=== PATIENT | male | born 1990 | race Caucasian/White ===

== ENCOUNTER 2016-09-04 12:24 | Emergency (ER) | payer MEDICAID ==
[2016-09-04 12:40] VITALS: BP 148/90
[2016-09-04 13:41] LABS: CHLORIDE,CL 102 mEq/L (98-106); SODIUM,NA 140 mEq/L (136-145)
--- NOTE | 2016-09-04 13:47 | EDM.PDOCBH ---
ED HPI GENERAL MEDICAL PROBLEM - General Chief Complaint: Behavioral/Psych Stated Complaint: needs pysch placement Time Seen by Provider: 09/04/16 12:55 Source of Information: Reports: Patient, Family History Limitations: Reports: No Limitations - History of Present Illness INITIAL COMMENTS - FREE TEXT/NARRATIVE: This patient is a 25 year old male that presents to the ER. Patient is accompanied by his mother. Patient reports that he has a history of having paranoia, hallucinations, anger, and fear of harming others. Patient has history of these, but reports over the weekend they have become much worse. The mother reports the patient is now living with her and out of his home because of fear of paranoia. He does report that he has paranoia that his is cheating on him. He reports that he does not think that he would hurt his , but does think he would hurt someone else, no specific people. The patient does report that sometimes he thinks there are people in his house and outside of his house trying to get in. His mother reports that sometimes the patient will become angry, hit things, and put holes in objects, then leave for several days at a time, with cell phone off. His mother reports that she is afraid he is going to hurt someone. Mother reports that when patient was 16, he did attempt suicide. Patent currently denies suicide. Patient mother reports the patient does own a shotgun and carries it with him almost everywhere he goes. She reports that he also sleeps with it. Mother and the patient are requesting inpatient treatment for his behavior. He denies contreras, dizziness, n, v, d, f, cp, soa, abd pain, urinary/bowel changes, rashes. Denies alcohol or drug use. Onset: Gradual Duration: Day(s): (2 ), Getting Worse Severity: Moderate Improves with: Reports: None Worsens with: Reports: None Associated Symptoms: Reports: No Other Symptoms. Denies: Confusion, Chest Pain , Cough, cough w sputum, Diaphoresis, Fever/Chills, Headaches, Loss of Appetite , Malaise, Nausea/Vomiting, Rash, Seizure, Shortness of Breath, Syncope, Weakness - Related Data Allergies Allergy/AdvReac Type Severity Reaction Status Date / Time codeine Allergy Other Verified 09/04/16 12:40 meperidine [From Demerol] Allergy Other Verified 09/04/16 12:40 morphine Allergy Other Verified 09/04/16 12:40 plastic tape Allergy Other Uncoded 09/04/16 12:40 Home Meds: Home Meds ClonazePAM [KlonoPIN] 0.5 mg PO Q12H PRN 09/04/16 [History] Dextroamphetamine/Amphetamine [Adderall Xr 30 mg Capsule] 30 mg PO DAILY [History] Gabapentin [Neurontin] 300 mg PO QID 09/04/16 [History] OLANZapine [Olanzapine] 5 mg PO BEDTIME 09/04/16 [History] buPROPion HCl [Wellbutrin SR] 150 mg PO DAILY 09/04/16 [History] Past Medical History HEENT History: Reports: Allergic Rhinitis Gastrointestinal History: Reports: Bowel Obstruction Psychiatric History: Reports: ADHD, Anxiety, Depression, Other (See Below) Other Psychiatric History: paranoid - Past Surgical History GI Surgical History: Reports: Appendectomy, Cholecystectomy, Hernia, Inguinal, Hernia Repair/Other Musculoskeletal Surgical History: Reports: Other (See Below) Other Musculoskeletal Surgeries/Procedures:: foot surgery Social & Family History - Tobacco Use Smoking Status *Q: Current Every Day Smoker Years of Tobacco use: 10 Packs/Tins Daily: 0.5 - Recreational Drug Use Recreational Drug Use: No ED ROS GENERAL - Review of Systems Review Of Systems: See Below Constitutional: Reports: No Symptoms HEENT: Reports: No Symptoms Respiratory: Reports: No Symptoms Cardiovascular: Reports: No Symptoms Endocrine: Reports: No Symptoms GI/Abdominal: Reports: No Symptoms : Reports: No Symptoms Musculoskeletal: Reports: No Symptoms Skin: Reports: No Symptoms Neurological: Reports: No Symptoms Psychiatric: Reports: Agitation, Anxiety, Hallucinations, Mood Lability, Other ( paranoia) Hematologic/Lymphatic: Reports: No Symptoms Immunologic: Reports: No Symptoms ED EXAM, BEHAVIORAL HEALTH - Physical Exam Exam: See Below Exam Limited By: No Limitations General Appearance: Alert, WD/WN, No Apparent Distress Eye Exam: Bilateral Eye: EOMI, Normal Inspection, PERRL Ears: Normal External Exam, Normal Canal, Hearing Grossly Normal, Normal TMs Nose: Normal Inspection, Normal Mucosa, No Blood Throat/Mouth: Normal Inspection, Normal Lips, Normal Teeth, Normal Gums, Normal Oropharynx, Normal Voice, No Airway Compromise Head: Atraumatic, Normocephalic Neck: Normal Inspection, Supple, Non-Tender, Full Range of Motion Respiratory/Chest: No Respiratory Distress, Lungs Clear, Normal Breath Sounds, No Accessory Muscle Use Cardiovascular: Normal Peripheral Pulses, Regular Rate, Rhythm, No Edema, No Gallop, No JVD, No Murmur, No Rub GI/Abdominal: Soft, Non-Tender Back Exam: Normal Inspection, Full Range of Motion Extremities: Normal Inspection, Normal Range of Motion, Non-Tender, No Pedal Edema, Normal Capillary Refill Neurological: Alert, Normal Mood/Affect, Normal Cognition, Normal Gait, No Motor /Sensory Deficits, Oriented x 3 Psychiatric: Alert, Normal Cognition, Oriented, Flat Affect Skin Exam: Warm, Dry, Intact, Normal color, No rash COURSE, BEHAVIORAL HEALTH COMP - Course Vital Signs: Last Vital Signs Temp 97.6 F 09/04/16 12:30 Pulse 93 09/04/16 12:30 Resp 20 09/04/16 12:30 BP 148/90 H 09/04/16 12:30 Pulse Ox 98 09/04/16 12:30 Orders, Labs, Meds: Laboratory Tests 09/04/16 09/04/16 09/04/16 Range/Units 13:13 13:13 13:18 WBC 6.6 (5.0-10.0) 10^3/uL RBC 5.50 (4.50-6.00) 10^6/uL Hgb 16.9 (14.0-18.0) g/dL Hct 50.4 (40.0-54.0) % MCV 91.6 (82.0-94.0) fL MCH 30.7 (27.0-32.0) pg MCHC 33.5 (33.0-38.0) g/dL RDW Coeff of Julian 13.0 (11.0-15.0) % Plt Count 295 (150-400) 10^3/uL Neut % (Auto) 47.9 (35-85) % Lymph % (Auto) 39.2 (10-55) % Kerr % (Auto) 8.9 (0-16) % Eos % (Auto) 3.2 (0-5) % Baso % (Auto) 0.8 (0-3) % Neut # (Auto) 3.19 (1.80-7.00) 10^3/uL Lymph # (Auto) 2.60 (1.00-4.80) 10^3/uL Kerr # (Auto) 0.59 (0.00-0.80) 10^3/uL Eos # (Auto) 0.21 (0.00-0.45) 10^3/uL Baso # (Auto) 0.05 10^3/uL Sodium 140 (136-145) mEq/L Potassium 4.4 (3.5-5.0) mEq/L Chloride 102 (98-106) mEq/L Carbon Dioxide 28 (21-32) mmol/L BUN 14 (7-18) mg/dL Creatinine 0.9 (0.7-1.3) mg/dL Est Cr Clr Drug Dosing 127.30 mL/min Estimated GFR (MDRD) > 60 (>=60) mL/min Glucose 94 (75-99) mg/dL Calcium 9.4 (8.4-10.1) mg/dL Total Bilirubin 0.3 (0.0-1.0) mg/dL AST 16 (15-37) U/L ALT 26 (12-78) U/L Alkaline Phosphatase 54 (46-116) U/L Total Protein 8.0 (6.4-8.2) g/dL Albumin 4.0 (3.4-5.0) g/dL Urine Color (YELLOW) Urine Appearance (CLEAR) Urine pH (4.5-8.0) Ur Specific [place] (1.003-1.020) Urine Protein (NEGATIVE) mg/dL Urine Glucose (UA) (NEGATIVE) mg/dL Urine Ketones (NEGATIVE) mg/dL Urine Occult Blood (NEGATIVE) Urine Nitrite (NEGATIVE) Urine Bilirubin (NEGATIVE) Urine Urobilinogen (0.2-1.0) EU/dL Ur Leukocyte Esterase (NEGATIVE) Urine RBC (0-5) /HPF Urine WBC (0-5) /HPF Ur Squamous Epith Cells (NOT SEEN) /HPF Urine Opiates Screen Negative (NEGATIVE) Ur Oxycodone Screen Negative (NEGATIVE) Urine Methadone Screen Negative (NEGATIVE) Ur Barbiturates Screen Negative (NEGATIVE) U Tricyclic Antidepress Negative (NEGATIVE) Ur Phencyclidine Scrn Negative (NEGATIVE) Ur Amphetamine Screen Positive H (NEGATIVE) U Methamphetamines Scrn Negative (NEGATIVE) Urine MDMA Screen Negative (NEGATIVE) U Benzodiazepines Scrn Negative (NEGATIVE) Urine Cocaine Screen Negative (NEGATIVE) U Marijuana (THC) Screen Positive H (NEGATIVE) 07/31/17 Range/Units 13:18 WBC (5.0-10.0) 10^3/uL RBC (4.50-6.00) 10^6/uL Hgb (14.0-18.0) g/dL Hct (40.0-54.0) % MCV (82.0-94.0) fL MCH (27.0-32.0) pg MCHC (33.0-38.0) g/dL RDW Coeff of Julian (11.0-15.0) % Plt Count (150-400) 10^3/uL Neut % (Auto) (35-85) % Lymph % (Auto) (10-55) % Kerr % (Auto) (0-16) % Eos % (Auto) (0-5) % Baso % (Auto) (0-3) % Neut # (Auto) (1.80-7.00) 10^3/uL Lymph # (Auto) (1.00-4.80) 10^3/uL Kerr # (Auto) (0.00-0.80) 10^3/uL Eos # (Auto) (0.00-0.45) 10^3/uL Baso # (Auto) 10^3/uL Sodium (136-145) mEq/L Potassium (3.5-5.0) mEq/L Chloride (98-106) mEq/L Carbon Dioxide (21-32) mmol/L BUN (7-18) mg/dL Creatinine (0.7-1.3) mg/dL Est Cr Clr Drug Dosing mL/min Estimated GFR (MDRD) (>=60) mL/min Glucose (75-99) mg/dL Calcium (8.4-10.1) mg/dL Total Bilirubin (0.0-1.0) mg/dL AST (15-37) U/L ALT (12-78) U/L Alkaline Phosphatase (46-116) U/L Total Protein (6.4-8.2) g/dL Albumin (3.4-5.0) g/dL Urine Color Yellow (YELLOW) Urine Appearance Clear (CLEAR) Urine pH 7.0 (4.5-8.0) Ur Specific [place] 1.013 (1.003-1.020) Urine Protein Negative (NEGATIVE) mg/dL Urine Glucose (UA) Negative (NEGATIVE) mg/dL Urine Ketones Negative (NEGATIVE) mg/dL Urine Occult Blood Negative (NEGATIVE) Urine Nitrite Negative (NEGATIVE) Urine Bilirubin Negative (NEGATIVE) Urine Urobilinogen 0.2 (0.2-1.0) EU/dL Ur Leukocyte Esterase Negative (NEGATIVE) Urine RBC Not seen (0-5) /HPF Urine WBC Not seen (0-5) /HPF Ur Squamous Epith Cells Occasional H (NOT SEEN) /HPF Urine Opiates Screen (NEGATIVE) Ur Oxycodone Screen (NEGATIVE) Urine Methadone Screen (NEGATIVE) Ur Barbiturates Screen (NEGATIVE) U Tricyclic Antidepress (NEGATIVE) Ur Phencyclidine Scrn (NEGATIVE) Ur Amphetamine Screen (NEGATIVE) U Methamphetamines Scrn (NEGATIVE) Urine MDMA Screen (NEGATIVE) U Benzodiazepines Scrn (NEGATIVE) Urine Cocaine Screen (NEGATIVE) U Marijuana (THC) Screen (NEGATIVE) Re-Assessment/Re-Exam: I have spoken to [facility]. She has performed a screening on the patient via phone. She then has spoken to the [facility] who has agreed to accept this patient. The accepting is Dr. Kennedy. We will send patient vai transfer via police. Medical Clearance: 09/04/16 15:30 Medically Cleared Departure - Departure Time of Disposition: 15:41 Disposition: DC/Tfer to Acute Hospital 02 Condition: Fair Clinical Impression: Hallucinations, Paranoia - Discharge Information Referrals: Paul Maria MD [Primary Care Provider] - Forms: ED Department Discharge - Assessment/Plan Plan: PLEASE SEE RN NOTE FOR PFSH. This patient is being transferred to the [facility] via police transfer. The risks of the transfer are , mvc, paranoia behavior. The benefits of transfer are specialist, safe environment for patient, psychiatric care. The benefits of staying in [place] are close to home. The risks of staying in [place] are no specialist, no psychiatric care.
== END 2016-09-04 16:10 ==
LOC: CC.ED 12:24
DX: F22 Delusional disorders (principal); R44.3 Hallucinations, unspecified; F90.9 Attention-deficit hyperactivity disorder, unspecified type; F41.9 Anxiety disorder, unspecified; F32.9 Major depressive disorder, single episode, unspecified; F17.210 Nicotine dependence, cigarettes, uncomplicated; Z88.8 Allergy status to other drugs, medicaments and biological substances; Z88.5 Allergy status to narcotic agent; Z79.899 Other long term (current) drug therapy; Z90.49 Acquired absence of other specified parts of digestive tract; Z90.89 Acquired absence of other organs
CPT/HCPCS: 36415; 80053; 80305; 81001; 85025; 99284